=== PATIENT | male | born 1970 | race Caucasian/White ===

== ENCOUNTER 2020-05-06 19:52 | Inpatient (IN) | payer MEDICAID, OTHER ==
[~2020-05-06] VITALS: Ht 172.7 cm; Wt 89.5 kg
[2020-05-06 21:33] LABS: COVID AG,FIA SOURCE NASOPHARYNGEAL
[2020-05-06 21:46] LABS: AMPHET/METH SCREEN,URINE POSITIVE (NEGATIVE); BARBITURATE SCREEN, URINE NEGATIVE (NEGATIVE); BENZODIAZEPINES SCREEN,URINE NEGATIVE (NEGATIVE); CANNABINOID SCREEN,URINE NEGATIVE (NEGATIVE); COCAINE SCREEN,URINE NEGATIVE (NEGATIVE); METHADONE SCREEN, URINE NEGATIVE (NEGATIVE); OPIATE SCREEN,URINE NEGATIVE (NEGATIVE)
[2020-05-06 21:47] LABS: PHENCYCLIDINE SCREEN,URINE NEGATIVE (NEGATIVE)
[2020-05-06 22:51] LABS: BASOPHILS % (AUTO) 0.2 % (0.0-2.0); EOSINOPHILS % (AUTO) 0.9 % (1.0-6.0); HEMATOCRIT 43.7 % (41-53); HEMOGLOBIN 14.7 g/dL (13.5-17.5); LYMPHOCYTES # (AUTO) 2.2 K/uL (1.0-4.8); LYMPHOCYTES % (AUTO) 33.7 % (22.0-44.0); MEAN CORPUSCULAR HEMOGLOBIN 27.8 pg (26.0-34.0); MEAN CORPUSCULAR HGB CONC 33.7 G/dL (31.0-37.0); MEAN CORPUSCULAR VOLUME 82 fL (80-100); MONOCYTES # (AUTO) 0.5 K/uL (0.1-1.0); MONOCYTES % (AUTO) 7.9 % (2.0-9.0); NEUTROPHILS # (AUTO) 3.7 K/uL (1.8-7.7); NEUTROPHILS % (AUTO) 57.3 % (40.0-70.0); PLATELET COUNT (AUTO) 216 K/uL (150-450); RED CELL DISTRIBUTION WIDTH 14.1 % (11.5-14.5)
[2020-05-06 22:59] LABS: ANION GAP 6 mmol/L (8-16); CALCIUM, TOTAL 9.1 mg/dL (8.8-10.5); CARBON DIOXIDE 29 mmol/L (22-29); CHLORIDE 104 mmol/L (98-107); CREATININE 0.94 mg/dL (0.60-1.30); GLOMERULAR FILTR. RATE CALC > 60 mL/min (>60); GLUCOSE,RANDOM 94 mg/dL (70-110); SODIUM SERUM 139 mmol/L (136-145); UREA NITROGEN, BLOOD 13 mg/dL (7-18)
[2020-05-06 23:06] LABS: ALANINE AMINOTRANSFERASE 33 U/L (12-78); ALKALINE PHOSPHATASE 118 U/L (46-116); ASPARTATE AMINOTRANSFERASE 19 U/L (15-37); BILIRUBIN,TOTAL 0.2 mg/dL (0.1-1.0); TOTAL PROTEIN, SERUM 8.1 g/dL (6.4-8.2)
[2020-05-07 01:52] VITALS: BP 139/95
[2020-05-07 03:38] LABS: CHOL/HDL RATIO 5.3 (4.2-7.3); CHOLESTEROL 186 mg/dL (131-200); HDL CHOLESTEROL 35 mg/dL (40-60); LDL CHOL (CALC.) 81 mg/dL (0-130); TRIGLYCERIDES 350 mg/dL (15-150)
[2020-05-07 03:40] LABS: APPEARANCE,URINE TURBID (CLEAR); BILIRUBIN,URINE NEGATIVE (NEGATIVE); GLUCOSE, URINE (UA) NEGATIVE (NEGATIVE); KETONES,URINE NEGATIVE (NEGATIVE); LEUKOCYTE ESTERASE ,URINE NEGATIVE (NEGATIVE); NITRATE,URINE NEGATIVE (NEGATIVE); OCCULT BLOOD,URINE SMALL (NEGATIVE); PROTEIN,URINE NEGATIVE (NEGATIVE); UROBILINOGEN,URINE 0.2 mg/dL (<=1.0)
[2020-05-07 03:49] LABS: BACTERIA,URINE Many /HPF (None Seen); RBC,URINE 0-2 /HPF (0-2); SQUAMOUS EPITHELIAL CELL,UR Rare /LPF (None Seen); WBC,URINE 0-2 /HPF (0-5)
[2020-05-07] MEDS: OLANZapine 5 MG RAPDIS TABLET PO PRN (04:00)
[2020-05-07 08:08] VITALS: BP 138/90
[2020-05-07] MEDS ORDERED: MAG HYDROX/AL HYDROX/SIMETH ES 30 ML SUSPENSION UDCUP PO PRN (08:15)
[2020-05-07] MEDS ORDERED: MAGNESIUM HYDROXIDE SUSPENSION 30 ML UDCUP PO PRN (08:15)
[2020-05-07] MEDS ORDERED: HydrOXYzine PAMOATE 50 MG CAPSULE PO PRN (08:15)
[2020-05-07] MEDS ORDERED: ACETAMINOPHEN 325 MG TABLET PO PRN (08:15)
[2020-05-07] MEDS ORDERED: PROMETHAZINE HCL 25 MG TABLET PO PRN (08:15)
[2020-05-07] MEDS ORDERED: GuaiFENesin/D-METHORPHAN [SUGAR-FREE] 200-20MG/10 ML SYRUP UDCUP PO PRN (08:15)
[2020-05-07] MEDS ORDERED: LOPERAMIDE HCL 2 MG CAPSULE PO PRN (08:15)
[2020-05-07] MEDS ORDERED: TUBERCULIN, PURIFIED PROTEIN DERIVATIVE 5 TU/0.1 ML SYRINGE ID ONE (08:15)
[2020-05-07] MEDS: OMEGA-3/DHA/EPA/FISH OIL 1,000 MG CAPSULE PO SCH (09:07)
[2020-05-07] MEDS: NALTREXONE HCL 50 MG TABLET PO SCH (09:07)
[2020-05-07] MEDS: FOLIC ACID 1 MG TABLET PO SCH (09:07)
[2020-05-07] MEDS: MULTIVITAMINS WITH MINERALS, THERAPEUTIC TABLET PO SCH (09:07)
[2020-05-07] MEDS: THIAMINE 100 MG TABLET PO SCH ×2 (09:07→16:47)
[2020-05-07] MEDS: NITROFURANTOIN/NITROFURAN MAC 100 MG CAPSULE [MACROBID] PO SCH ×2 (09:07→16:46)
[2020-05-07 16:33] VITALS: BP 136/86
[2020-05-07] MEDS: DIVALPROEX SODIUM 500 MG ER TABLET PO SCH (19:53)
[2020-05-07] MEDS: MELATONIN 5 MG TABLET PO SCH (19:53)
[2020-05-07] MEDS ORDERED: OLANZapine 5 MG RAPDIS TABLET PO SCH (21:00)
[2020-05-08 00:17] VITALS: BP 140/85
[2020-05-08] MEDS: MULTIVITAMINS WITH MINERALS, THERAPEUTIC TABLET PO SCH (08:29)
[2020-05-08] MEDS: OMEGA-3/DHA/EPA/FISH OIL 1,000 MG CAPSULE PO SCH (08:29)
[2020-05-08] MEDS: NITROFURANTOIN/NITROFURAN MAC 100 MG CAPSULE [MACROBID] PO SCH ×2 (08:29→16:54)
[2020-05-08] MEDS: NALTREXONE HCL 50 MG TABLET PO SCH (08:29)
[2020-05-08] MEDS: THIAMINE 100 MG TABLET PO SCH ×2 (08:30→16:54)
[2020-05-08] MEDS: FOLIC ACID 1 MG TABLET PO SCH (08:30)
[2020-05-08 08:38] VITALS: BP 134/96
[2020-05-08] MEDS: LORazepam 2 MG TABLET PO PRN (13:07)
[2020-05-08] MEDS: OLANZapine 5 MG RAPDIS TABLET PO PRN ×2 (13:07→20:56)
[2020-05-08 16:11] VITALS: BP 139/94
[2020-05-08] MEDS: MELATONIN 5 MG TABLET PO SCH (20:57)
[2020-05-08] MEDS: DIVALPROEX SODIUM 500 MG ER TABLET PO SCH (20:57)
[2020-05-08] MEDS: OLANZapine 10 MG RAPDIS TABLET PO SCH (22:08)
[2020-05-09 05:18] VITALS: BP 141/96
[2020-05-09 08:12] VITALS: BP 145/85
[2020-05-09] MEDS: NITROFURANTOIN/NITROFURAN MAC 100 MG CAPSULE [MACROBID] PO SCH ×2 (08:12→16:10)
[2020-05-09] MEDS: NALTREXONE HCL 50 MG TABLET PO SCH (08:12)
[2020-05-09] MEDS: FOLIC ACID 1 MG TABLET PO SCH (08:12)
[2020-05-09] MEDS: MULTIVITAMINS WITH MINERALS, THERAPEUTIC TABLET PO SCH (08:12)
[2020-05-09] MEDS: THIAMINE 100 MG TABLET PO SCH ×2 (08:12→16:10)
[2020-05-09] MEDS: OMEGA-3/DHA/EPA/FISH OIL 1,000 MG CAPSULE PO SCH (08:12)
[2020-05-09 09:08] LABS: HEMOGLOBIN A1C 5.7 % (3.8-5.6)
[2020-05-09 09:57] LABS: CHOL/HDL RATIO 5.6 (4.2-7.3); FREE T4 (FREE THYROXINE) 1.05 ng/dL (0.76-1.46); THYROID STIMULATING HORMONE 0.49 uIU/mL (0.36-3.74)
[2020-05-09 16:12] VITALS: BP 125/83
[2020-05-09] MEDS: MELATONIN 5 MG TABLET PO SCH (20:21)
[2020-05-09] MEDS: DIVALPROEX SODIUM 500 MG ER TABLET PO SCH (20:21)
[2020-05-09] MEDS: OLANZapine 10 MG RAPDIS TABLET PO SCH (20:23)
[2020-05-10 00:18] VITALS: BP 133/92
[2020-05-10] MEDS: OMEGA-3/DHA/EPA/FISH OIL 1,000 MG CAPSULE PO SCH (08:00)
[2020-05-10] MEDS: NALTREXONE HCL 50 MG TABLET PO SCH (08:00)
[2020-05-10] MEDS: NITROFURANTOIN/NITROFURAN MAC 100 MG CAPSULE [MACROBID] PO SCH ×2 (08:00→16:10)
[2020-05-10] MEDS: MULTIVITAMINS WITH MINERALS, THERAPEUTIC TABLET PO SCH (08:00)
[2020-05-10] MEDS: THIAMINE 100 MG TABLET PO SCH ×2 (08:01→16:10)
[2020-05-10] MEDS: FOLIC ACID 1 MG TABLET PO SCH (08:01)
[2020-05-10 08:38] VITALS: BP 140/90
[2020-05-10 16:12] VITALS: BP 132/68
[2020-05-10] MEDS: MELATONIN 5 MG TABLET PO SCH (20:07)
[2020-05-10] MEDS: DIVALPROEX SODIUM 500 MG ER TABLET PO SCH (20:07)
[2020-05-10] MEDS: OLANZapine 10 MG RAPDIS TABLET PO SCH (20:07)
[2020-05-11 06:47] VITALS: BP 139/93
[2020-05-11] MEDS: MULTIVITAMINS WITH MINERALS, THERAPEUTIC TABLET PO SCH (08:07)
[2020-05-11] MEDS: PYRIDOXINE HCL 50 MG TABLET PO SCH (08:07)
[2020-05-11] MEDS: NALTREXONE HCL 50 MG TABLET PO SCH (08:07)
[2020-05-11] MEDS: ISONIAZID 300 MG TABLET PO SCH (08:07)
[2020-05-11] MEDS: OMEGA-3/DHA/EPA/FISH OIL 1,000 MG CAPSULE PO SCH (08:07)
[2020-05-11] MEDS: THIAMINE 100 MG TABLET PO SCH ×2 (08:07→16:01)
[2020-05-11] MEDS: FOLIC ACID 1 MG TABLET PO SCH (08:07)
[2020-05-11] MEDS: NITROFURANTOIN/NITROFURAN MAC 100 MG CAPSULE [MACROBID] PO SCH ×2 (08:07→16:01)
[2020-05-11 08:19] VITALS: BP 144/78
[2020-05-11 09:14] LABS: COVID AG,FIA SOURCE NASOPHARYNGEAL
[2020-05-11 16:23] VITALS: BP 124/78
[2020-05-11] MEDS: MELATONIN 5 MG TABLET PO SCH (20:11)
[2020-05-11] MEDS: OLANZapine 10 MG RAPDIS TABLET PO SCH (20:12)
[2020-05-11] MEDS: DIVALPROEX SODIUM 500 MG ER TABLET PO SCH (20:12)
[2020-05-12 00:20] VITALS: BP 120/71
[2020-05-12] MEDS: PYRIDOXINE HCL 50 MG TABLET PO SCH (08:09)
[2020-05-12] MEDS: ISONIAZID 300 MG TABLET PO SCH (08:09)
[2020-05-12] MEDS: THIAMINE 100 MG TABLET PO SCH ×2 (08:10→17:18)
[2020-05-12] MEDS: OMEGA-3/DHA/EPA/FISH OIL 1,000 MG CAPSULE PO SCH (08:10)
[2020-05-12] MEDS: NALTREXONE HCL 50 MG TABLET PO SCH (08:10)
[2020-05-12] MEDS: MULTIVITAMINS WITH MINERALS, THERAPEUTIC TABLET PO SCH (08:10)
[2020-05-12] MEDS: FOLIC ACID 1 MG TABLET PO SCH (08:10)
[2020-05-12 08:29] VITALS: BP 114/86
[2020-05-12 16:31] VITALS: BP 133/90
[2020-05-12] MEDS: MELATONIN 5 MG TABLET PO SCH (21:10)
[2020-05-12] MEDS: DIVALPROEX SODIUM 500 MG ER TABLET PO SCH (21:10)
[2020-05-12] MEDS: OLANZapine 10 MG RAPDIS TABLET PO SCH (21:11)
[2020-05-13 04:31] VITALS: BP 145/95
[2020-05-13 08:34] VITALS: BP 115/66
[2020-05-13] MEDS: FOLIC ACID 1 MG TABLET PO SCH (08:48)
[2020-05-13] MEDS: OMEGA-3/DHA/EPA/FISH OIL 1,000 MG CAPSULE PO SCH (08:48)
[2020-05-13] MEDS: NALTREXONE HCL 50 MG TABLET PO SCH (08:48)
[2020-05-13] MEDS: THIAMINE 100 MG TABLET PO SCH ×2 (08:48→16:15)
[2020-05-13] MEDS: MULTIVITAMINS WITH MINERALS, THERAPEUTIC TABLET PO SCH (08:48)
[2020-05-13] MEDS: PYRIDOXINE HCL 50 MG TABLET PO SCH (08:49)
[2020-05-13] MEDS: ISONIAZID 300 MG TABLET PO SCH (08:49)
[2020-05-13 16:07] VITALS: BP 140/66
[2020-05-13] MEDS: MELATONIN 5 MG TABLET PO SCH (20:12)
[2020-05-13] MEDS: DIVALPROEX SODIUM 500 MG ER TABLET PO SCH (20:12)
[2020-05-13] MEDS: OLANZapine 10 MG RAPDIS TABLET PO SCH (20:12)
[2020-05-14] VITALS: BP 139/86
[2020-05-14] MEDS: ZOLPIDEM TARTRATE 10 MG TABLET PO PRN (00:11)
[2020-05-14 08:20] VITALS: BP 154/104
[2020-05-14] MEDS: MULTIVITAMINS WITH MINERALS, THERAPEUTIC TABLET PO SCH (08:25)
[2020-05-14] MEDS: NALTREXONE HCL 50 MG TABLET PO SCH (08:25)
[2020-05-14] MEDS: FOLIC ACID 1 MG TABLET PO SCH (08:25)
[2020-05-14] MEDS: LORazepam 2 MG TABLET PO PRN (08:25)
[2020-05-14] MEDS: THIAMINE 100 MG TABLET PO SCH ×2 (08:25→16:38)
[2020-05-14] MEDS: ISONIAZID 300 MG TABLET PO SCH (08:25)
[2020-05-14] MEDS: PYRIDOXINE HCL 50 MG TABLET PO SCH (08:25)
[2020-05-14] MEDS: OMEGA-3/DHA/EPA/FISH OIL 1,000 MG CAPSULE PO SCH (08:25)
[2020-05-14 10:00] VITALS: BP 145/101
[2020-05-14 13:19] VITALS: BP 151/101
[2020-05-14 16:06] VITALS: BP 131/80
[2020-05-14] MEDS: MELATONIN 5 MG TABLET PO SCH (20:35)
[2020-05-14] MEDS: OLANZapine 10 MG RAPDIS TABLET PO SCH (20:35)
[2020-05-14] MEDS: DIVALPROEX SODIUM 500 MG ER TABLET PO SCH (20:35)
[2020-05-14] MEDS ORDERED: CloNIDine HCL 0.1 MG TABLET PO PRN (21:00)
[2020-05-15 00:12] VITALS: BP 122/80
[2020-05-15 08:05] VITALS: BP 148/85
[2020-05-15] MEDS: OMEGA-3/DHA/EPA/FISH OIL 1,000 MG CAPSULE PO SCH (08:19)
[2020-05-15] MEDS: THIAMINE 100 MG TABLET PO SCH ×2 (08:19→16:20)
[2020-05-15] MEDS: MULTIVITAMINS WITH MINERALS, THERAPEUTIC TABLET PO SCH (08:19)
[2020-05-15] MEDS: AmLODIPine BESYLATE 2.5 MG TABLET PO SCH (08:19)
[2020-05-15] MEDS: FOLIC ACID 1 MG TABLET PO SCH (08:19)
[2020-05-15] MEDS: PYRIDOXINE HCL 50 MG TABLET PO SCH (08:20)
[2020-05-15] MEDS: NALTREXONE HCL 50 MG TABLET PO SCH (08:21)
[2020-05-15] MEDS: ISONIAZID 300 MG TABLET PO SCH (08:21)
[2020-05-15 16:23] VITALS: BP 129/88
[2020-05-15] MEDS: OLANZapine 10 MG RAPDIS TABLET PO SCH (20:05)
[2020-05-15] MEDS: MELATONIN 5 MG TABLET PO SCH (20:05)
[2020-05-15] MEDS: DIVALPROEX SODIUM 500 MG ER TABLET PO SCH (20:05)
[2020-05-16 00:44] VITALS: BP 120/67
[2020-05-16 08:33] VITALS: BP 151/78
[2020-05-16] MEDS: ISONIAZID 300 MG TABLET PO SCH (08:48)
[2020-05-16] MEDS: PYRIDOXINE HCL 50 MG TABLET PO SCH (08:48)
[2020-05-16] MEDS: MULTIVITAMINS WITH MINERALS, THERAPEUTIC TABLET PO SCH (08:49)
[2020-05-16] MEDS: OMEGA-3/DHA/EPA/FISH OIL 1,000 MG CAPSULE PO SCH (08:49)
[2020-05-16] MEDS: AmLODIPine BESYLATE 2.5 MG TABLET PO SCH (08:49)
[2020-05-16] MEDS: NALTREXONE HCL 50 MG TABLET PO SCH (08:49)
[2020-05-16] MEDS: THIAMINE 100 MG TABLET PO SCH ×2 (08:49→16:52)
[2020-05-16] MEDS: FOLIC ACID 1 MG TABLET PO SCH (08:49)
[2020-05-16 10:39] VITALS: BP 122/71
[2020-05-16 16:27] VITALS: BP 124/75
[2020-05-16] MEDS: OLANZapine 10 MG RAPDIS TABLET PO SCH (20:29)
[2020-05-16] MEDS: MELATONIN 5 MG TABLET PO SCH (20:29)
[2020-05-16] MEDS: DIVALPROEX SODIUM 500 MG ER TABLET PO SCH (20:29)
[2020-05-16] MEDS: ZOLPIDEM TARTRATE 10 MG TABLET PO PRN (22:54)
[2020-05-17 01:07] VITALS: BP 121/68
[2020-05-17 08:40] VITALS: BP 130/85
[2020-05-17] MEDS: PYRIDOXINE HCL 50 MG TABLET PO SCH (09:04)
[2020-05-17] MEDS: MULTIVITAMINS WITH MINERALS, THERAPEUTIC TABLET PO SCH (09:04)
[2020-05-17] MEDS: NALTREXONE HCL 50 MG TABLET PO SCH (09:04)
[2020-05-17] MEDS: AmLODIPine BESYLATE 2.5 MG TABLET PO SCH (09:04)
[2020-05-17] MEDS: ISONIAZID 300 MG TABLET PO SCH (09:04)
[2020-05-17] MEDS: OMEGA-3/DHA/EPA/FISH OIL 1,000 MG CAPSULE PO SCH (09:04)
[2020-05-17 16:21] VITALS: BP 140/89
[2020-05-17] MEDS: MELATONIN 5 MG TABLET PO SCH (20:11)
[2020-05-17] MEDS: OLANZapine 10 MG RAPDIS TABLET PO SCH (20:11)
[2020-05-17] MEDS: DIVALPROEX SODIUM 500 MG ER TABLET PO SCH (20:12)
[2020-05-18 00:30] VITALS: BP 132/73
[2020-05-18 07:52] LABS: COVID AG,FIA SOURCE NASAL SWAB
[2020-05-18 09:24] VITALS: BP 139/85
[2020-05-18] MEDS: PYRIDOXINE HCL 50 MG TABLET PO SCH (09:47)
[2020-05-18] MEDS: ISONIAZID 300 MG TABLET PO SCH (09:47)
[2020-05-18] MEDS: NALTREXONE HCL 50 MG TABLET PO SCH (09:47)
[2020-05-18] MEDS: MULTIVITAMINS WITH MINERALS, THERAPEUTIC TABLET PO SCH (09:47)
[2020-05-18] MEDS: AmLODIPine BESYLATE 2.5 MG TABLET PO SCH (09:47)
[2020-05-18] MEDS: OMEGA-3/DHA/EPA/FISH OIL 1,000 MG CAPSULE PO SCH (09:47)
[2020-05-18 16:13] VITALS: BP 124/83
[2020-05-18] MEDS: DIVALPROEX SODIUM 500 MG ER TABLET PO SCH (20:15)
[2020-05-18] MEDS: OLANZapine 10 MG RAPDIS TABLET PO SCH (20:15)
[2020-05-18] MEDS: MELATONIN 5 MG TABLET PO SCH (21:40)
[2020-05-19 00:53] VITALS: BP 132/78
[2020-05-19] MEDS: NALTREXONE HCL 50 MG TABLET PO SCH (08:33)
[2020-05-19] MEDS: OMEGA-3/DHA/EPA/FISH OIL 1,000 MG CAPSULE PO SCH (08:33)
[2020-05-19] MEDS: MULTIVITAMINS WITH MINERALS, THERAPEUTIC TABLET PO SCH (08:33)
[2020-05-19] MEDS: ISONIAZID 300 MG TABLET PO SCH (08:33)
[2020-05-19] MEDS: PYRIDOXINE HCL 50 MG TABLET PO SCH (08:33)
[2020-05-19] MEDS: AmLODIPine BESYLATE 2.5 MG TABLET PO SCH (08:33)
[2020-05-19 09:04] VITALS: BP 135/82
[2020-05-19 16:22] VITALS: BP 110/72
[2020-05-19] MEDS: MELATONIN 5 MG TABLET PO SCH (20:28)
[2020-05-19] MEDS: DIVALPROEX SODIUM 500 MG ER TABLET PO SCH (20:28)
[2020-05-19] MEDS: OLANZapine 10 MG RAPDIS TABLET PO SCH (20:29)
[2020-05-20 00:39] VITALS: BP 133/70
[2020-05-20 08:22] VITALS: BP 137/83
[2020-05-20] MEDS: NALTREXONE HCL 50 MG TABLET PO SCH (08:43)
[2020-05-20] MEDS: OMEGA-3/DHA/EPA/FISH OIL 1,000 MG CAPSULE PO SCH (08:43)
[2020-05-20] MEDS: PYRIDOXINE HCL 50 MG TABLET PO SCH (08:43)
[2020-05-20] MEDS: ISONIAZID 300 MG TABLET PO SCH (08:43)
[2020-05-20] MEDS: MULTIVITAMINS WITH MINERALS, THERAPEUTIC TABLET PO SCH (08:43)
[2020-05-20] MEDS: AmLODIPine BESYLATE 2.5 MG TABLET PO SCH (08:43)
[2020-05-20 16:33] VITALS: BP 137/85
[2020-05-20] MEDS: OLANZapine 10 MG RAPDIS TABLET PO SCH (20:45)
[2020-05-20] MEDS: MELATONIN 5 MG TABLET PO SCH (20:45)
[2020-05-20] MEDS: DIVALPROEX SODIUM 500 MG ER TABLET PO SCH (20:45)
[2020-05-21 00:27] VITALS: BP 129/79
[2020-05-21 08:25] VITALS: BP 130/79
[2020-05-21] MEDS: AmLODIPine BESYLATE 2.5 MG TABLET PO SCH (09:00)
[2020-05-21] MEDS: MULTIVITAMINS WITH MINERALS, THERAPEUTIC TABLET PO SCH (09:00)
[2020-05-21] MEDS: OMEGA-3/DHA/EPA/FISH OIL 1,000 MG CAPSULE PO SCH (09:00)
[2020-05-21] MEDS: ISONIAZID 300 MG TABLET PO SCH (09:00)
[2020-05-21] MEDS: PYRIDOXINE HCL 50 MG TABLET PO SCH (09:00)
[2020-05-21] MEDS: NALTREXONE HCL 50 MG TABLET PO SCH (10:05)
[2020-05-21 16:27] VITALS: BP 120/79
[2020-05-21] MEDS: OLANZapine 10 MG RAPDIS TABLET PO SCH (20:04)
[2020-05-21] MEDS: DIVALPROEX SODIUM 500 MG ER TABLET PO SCH (20:05)
[2020-05-21] MEDS: MELATONIN 5 MG TABLET PO SCH (20:05)
[2020-05-21] MEDS ORDERED: OMEG-135 PO (20:38)
[2020-05-21] MEDS ORDERED: NALT50TA PO (20:38)
[2020-05-21] MEDS ORDERED: DIVA-80 PO (20:38)
[2020-05-21] MEDS ORDERED: OLAN10TA22 PO (20:38)
[2020-05-21] MEDS ORDERED: MELA5TAB3 PO (20:38)
[2020-05-22 01:00] VITALS: BP 137/80
[2020-05-22] MEDS: MULTIVITAMINS WITH MINERALS, THERAPEUTIC TABLET PO SCH (08:41)
[2020-05-22] MEDS: ISONIAZID 300 MG TABLET PO SCH (08:41)
[2020-05-22] MEDS: NALTREXONE HCL 50 MG TABLET PO SCH (08:41)
[2020-05-22] MEDS: OMEGA-3/DHA/EPA/FISH OIL 1,000 MG CAPSULE PO SCH (08:41)
[2020-05-22] MEDS: AmLODIPine BESYLATE 2.5 MG TABLET PO SCH (08:41)
[2020-05-22] MEDS: PYRIDOXINE HCL 50 MG TABLET PO SCH (08:41)
[2020-05-22 08:42] VITALS: BP 132/78
[2020-05-22] MEDS ORDERED: PYRI-12 PO (10:01)
[2020-05-22] MEDS ORDERED: ISON300 PO (10:01)
[2020-05-22] MEDS ORDERED: AMLO-257 PO (10:01)
== END 2020-05-22 15:00 | disposition home or self-care (01) | DRG 750 ==
LOC: EMS 19:52 → B2S 23:00
PROVIDERS: ADMIT Psychiatry & Neurology Psychiatry; ATTEND Psychiatry & Neurology Psychiatry
DX: F25.0 Schizoaffective disorder, bipolar type (principal); F15.10 Other stimulant abuse, uncomplicated; F41.9 Anxiety disorder, unspecified; Z20.822 Contact with and (suspected) exposure to COVID-19; F12.10 Cannabis abuse, uncomplicated; E78.1 Pure hyperglyceridemia; F60.0 Paranoid personality disorder; N39.0 Urinary tract infection, site not specified; Z65.3 Problems related to other legal circumstances; Z59.9 Problem related to housing and economic circumstances, unspecified; Z91.19 Patient's noncompliance with other medical treatment and regimen
CPT/HCPCS: 83036; 84439; 84443; 86592; 87086; 87426; 99285; A9575; G0480; 36415-L1; 36415-TC; 71046; 71046-TC; 80061-TC

== ENCOUNTER 2022-09-14 12:09 | Emergency (ER) | payer MEDICAID, OTHER ==
[~2022-09-14] VITALS: Ht 167.6 cm; Wt 77.3 kg
[~2022-09-14 12:09] MED LIST: AMLO-257 PO; DIVA500T53 PO; ISON300 PO; MELA5TAB40 PO; NALT50TA PO; OLAN10TA22 PO; OMEG-135 PO; PYRI-12 PO
[2022-09-14 14:51] VITALS: BP 144/77
[2022-09-14 15:00] LABS: COVID AG,FIA SOURCE NASOPHARYNGEAL
[2022-09-14 15:25] LABS: BASOPHILS % (AUTO) 0.4 % (0.0-2.0); HEMATOCRIT 42.4 % (41-53); HEMOGLOBIN 13.8 g/dL (13.5-17.5); LYMPHOCYTES # (AUTO) 1.6 K/uL (1.0-4.8); LYMPHOCYTES % (AUTO) 29.4 % (22.0-44.0); MEAN CORPUSCULAR HEMOGLOBIN 26.8 pg (26.0-34.0); MEAN CORPUSCULAR HGB CONC 32.6 G/dL (31.0-37.0); MEAN CORPUSCULAR VOLUME 82 fL (80-100); MONOCYTES # (AUTO) 0.5 K/uL (0.1-1.0); MONOCYTES % (AUTO) 8.6 % (2.0-9.0); NEUTROPHILS # (AUTO) 3.4 K/uL (1.8-7.7); NEUTROPHILS % (AUTO) 60.6 % (40.0-70.0); PLATELET COUNT (AUTO) 253 K/uL (150-450); RED BLOOD CELL COUNT(AUTO) 5.15 MIL/uL (4.50-5.90); RED CELL DISTRIBUTION WIDTH 14.9 % (11.5-14.5)
[2022-09-14 15:29] LABS: ANION GAP 7 mmol/L (8-16); CALCIUM, TOTAL 9.1 mg/dL (8.8-10.5); CARBON DIOXIDE 29 mmol/L (22-29); CHLORIDE 101 mmol/L (98-107); CREATININE 0.89 mg/dL (0.60-1.30); GLOMERULAR FILTR. RATE CALC > 60 mL/min (>60); GLUCOSE,RANDOM 90 mg/dL (70-110); POTASSIUM 3.8 mmol/L (3.5-5.1); SODIUM SERUM 137 mmol/L (136-145)
[2022-09-14 15:36] LABS: ALANINE AMINOTRANSFERASE 26 U/L (12-78); ALBUMIN 3.8 g/dL (3.4-5.0); ALKALINE PHOSPHATASE 121 U/L (46-116); ASPARTATE AMINOTRANSFERASE 24 U/L (15-37); BILIRUBIN,TOTAL 0.3 mg/dL (0.1-1.0); TOTAL PROTEIN, SERUM 8.1 g/dL (6.4-8.2)
[2022-09-14 16:14] LABS: AMPHET/METH SCREEN,URINE NEGATIVE (NEGATIVE); BARBITURATE SCREEN, URINE NEGATIVE (NEGATIVE); BENZODIAZEPINES SCREEN,URINE NEGATIVE (NEGATIVE); CANNABINOID SCREEN,URINE NEGATIVE (NEGATIVE); COCAINE SCREEN,URINE NEGATIVE (NEGATIVE); METHADONE SCREEN, URINE NEGATIVE (NEGATIVE); OPIATE SCREEN,URINE NEGATIVE (NEGATIVE); PHENCYCLIDINE SCREEN,URINE NEGATIVE (NEGATIVE)
== END 2022-09-14 17:17 | disposition home or self-care (01) ==
LOC: EMS 12:12
DX: F20.9 Schizophrenia, unspecified (principal); Z87.891 Personal history of nicotine dependence; Z20.822 Contact with and (suspected) exposure to COVID-19
CPT/HCPCS: 99285; 87426; 80053; 85025; 36415; 80307 ×2; G0480